=== PATIENT | female | born 1970 ===

== ENCOUNTER 2020-01-10 02:45 | Emergency (ER) | payer OTHER ==
[2020-01-10 02:56] VITALS: BP 139/93; PULSE 107; RESP 18; TEMP 98.3
[2020-01-10] MEDS ORDERED: LORazepam 2 MG/ML INJ IM STA (03:22)
--- NOTE | 2020-01-10 03:25 | CT ---
EXAMINATION TYPE: CT brain cspine wo con DATE OF EXAM: 01/10/2020 COMPARISON: None HISTORY: FALL CT DLP: 1357.9 mGycm Automated exposure control for dose reduction was used. Multiple axial sections were obtained of the brain without contrast. Multiple axial sections were obt ained from the skull base to T1 vertebra without contrast. FINDINGS: Ventricles have normal size. There is no mass effect nor midline shift. There is no sign of intracran ial hemorrhage. There is mucosal thickening throughout the ethmoid sinuses. The calvarium is intact. The cervical vertebra have normal alignment. Posterior elements are intact. Facet joints are intact. Skull base is intact. Disc spaces are fairly normal. IMPRESSION: Negative CT scan of the brain. Ethmoid sinusitis. Negative CT scan cervical spine.
--- NOTE | 2020-01-10 03:40 | ED ---
General Adult HPI - General Source: patient, police, RN notes reviewed, old records reviewed Mode of arrival: ambulatory Limitations: no limitations <Demar Singleton - Last Filed: 01/10/20 03:45> <Arlyn Snider - Last Filed: 01/13/20 06:08> - General Chief complaint: Fall Stated complaint: Clearance Time Seen by Provider: 01/10/20 02:59 - History of Present Illness Initial comments: 49-year-old female patient presents to ED for chief complaint clearance for [facility]. [place] [facility] [place] she [place] off of a bench and hit the side of her head. This fall was witnessed. Patient is intoxicated with a reported alcohol of 0.23. No loss of consciousness. Patient denies any complaints at this time. Systemic: Pt denies fatigue, fever/chills, rash. Pt denies weakness, night sweats, weight loss. Neuro: Pt denies headache, visual disturbances, syncope or pre-syncope. HEENT: Pt denies ocular discharge or irritation, otalgia, rhinorrhea, pharyngitis or notable lymphadenopathy. Cardiopulmonary: Pt denies chest pain, SOB, heart palpitations, dyspnea on exertion. Abdominal/GI: Pt denies abdominal pain, n/v/d. : Pt denies dysuria, burning w/ urination, frequency/urgency. Denies new onset urinary or bowel incontinence. MSK: Pt denies myalgia, loss of strength or function in extremities. Neuro: Pt denies new onset weakness, paresthesias. (Demar Singleton) - Related Data Home Medications Medication Instructions Recorded Confirmed No Known Home Medications 01/10/20 01/10/20 Allergies Allergy/AdvReac Type Severity Reaction Status Date / Time No Known Allergies Allergy Verified 01/10/20 02:56 Review of Systems ROS Other: All systems not noted in ROS Statement are negative. <Demar Singleton - Last Filed: 01/10/20 03:45> ROS Other: All systems not noted in ROS Statement are negative. <Arlyn Snider - Last Filed: 01/13/20 06:08> ROS Statement: Those systems with pertinent positive or pertinent negative responses have been documented in the HPI. Past Medical History Past Medical History: No Reported History History of Any Multi-Drug Resistant Organisms: None Reported Past Surgical History: Appendectomy Past Psychological History: Anxiety Smoking Status: Current every day smoker Past Alcohol Use History: Abuse, Daily, Heavy Past Drug Use History: Marijuana <Demar Singleton - Last Filed: 01/10/20 03:45> General Exam Limitations: no limitations <JankiDemar gibbs Aj - Last Filed: 01/10/20 03:45> - General Exam Comments Initial Comments: Constitutional: NAD, AOX3, Pt has pleasant affect. HEENT: NC/AT, trachea midline, neck supple, no lymphadenopathy. Posterior pharynx non erythematous, without exudates. External ears appear normal, without discharge. Mucous membranes moist. Eyes PERRLA, EOM intact. There is no scleral icterus. No pallor noted. Cardiopulmonary: RRR, no murmurs, rubs or gallops, no JVD noted. Lungs CTAB in anterior and posterior rainey. No peripheral edema. Abdominal exam: Abdomen soft and non-distended. Abdomen non-tender to palpation in all 4 quadrants. Bowel sounds active in LLQ. No hepatosplenomegaly. No ecchymosis Neuro: CN II-XII intact. No nuchal rigidity. No raccon eyes, no cedeno sign, no hemotympanum. No cervical spinal tenderness. No ecchymoses, no laceration. MSK: No posterior calf tenderness bilaterally, homans sign negative bilaterally. Posterior tibialis and radial pulse +2 bilaterally. Sensation intact in upper and lower extremities. Full active ROM in upper and lower extremities, 5/5 stregnth. (Demar Singleton) Course Vital Signs 01/10/20 02:52 Temperature 98.3 F Pulse Rate 107 H Respiratory 18 Rate Blood Pressure 139/93 O2 Sat by Pulse 96 Oximetry Medical Decision Making <Demar Singleton - Last Filed: 01/10/20 03:45> <Arlyn Snider - Last Filed: 01/13/20 06:08> - Medical Decision Making 49-year-old female patient presents to ED for chief complaint clearance for [facility]. [place] and hit the side of her head. This fall was witnessed. Patient is intoxicated with a reported alcohol of 0.23. No loss of consciousness. Patient denies any complaints at this time. Patient fell signs are stable, afebrile. Physical exam did not acute pathology. CT brain C-spine did not display acute process. Interpreted by Dr. Padgett. Patient cleared to return to fci. Case discussed with Dr. Snider. (Demar Singleton) I was available for consultation in the emergency department. The history and physical exam were done by the midlevel provider. I was consulted for this patients care. I reviewed the case with the midlevel provider and based on their presentation of the patient, I agree with the assessment, medical decision making and plan of care as documented. Chart was dictated using [employer] dictation software. Attempts were made to correct any dictation errors however some typographical errors may persist. (Arlyn Snider) Disposition Is patient prescribed a controlled substance at d/c from ED?: No <Demar Singleton - Last Filed: 01/10/20 03:45> <Arlyn Snider - Last Filed: 01/13/20 06:08> Clinical Impression: Fall Disposition: HOME SELF-CARE Condition: Stable Instructions (If sedation given, give patient instructions): Fall Prevention (ED) Additional Instructions: Clearance to return to fci. Follow up with PCP as soon as possible. Return to ER if condition worsens. Referrals: None,Stated [Primary Care Provider] - 1-2 days
== END 2020-01-10 03:53 | disposition home or self-care (01) ==
LOC: EC 02:45
DX: Z02.89 Encounter for other administrative examinations (principal); F10.129 Alcohol abuse with intoxication, unspecified; F17.200 Nicotine dependence, unspecified, uncomplicated; Y90.0 Blood alcohol level of less than 20 mg/100 ml; W08.XXXA Fall from other furniture, initial encounter; Y92.149 Unspecified place in prison as the place of occurrence of the external cause; Z53.8 Procedure and treatment not carried out for other reasons
CPT/HCPCS: 72125; 70450; 99284; L0120